=== PATIENT | male | born 1965 | race American Indian/Alaskan Native ===

== ENCOUNTER 2017-11-21 05:23 | Emergency (ER) | payer OTHER ==
[2017-11-21] MEDS ORDERED: TYLENOL PO ONE (05:50)
[2017-11-21] MEDS ORDERED: SUBLIMAZE IV ONE (05:57)
[2017-11-21 06:08] LABS: Basophils # (Auto) 0.1 K/mm3 (0.0-0.1); Basophils % (Auto) 0.9 % (0.0-1.8); Eosinophils # (Auto) 0.7 K/mm3 (0.0-0.4); Eosinophils % (Auto) 8.5 % (0.0-4.3); Hematocrit 42.2 % (35.5-45.6); Hemoglobin 14.4 gm/dl (11.8-15.2); Lymphocytes # (Auto) 2.2 K/mm3 (1.2-5.4); Lymphocytes % (Auto) 28.9 % (13.4-35.0); Mean Corpuscular HGB Conc 34 % (32-34); Mean Corpuscular Hemoglobin 31 pg (28-32); Mean Corpuscular Volume 91 fl (84-94); Monocytes # (Auto) 0.5 K/mm3 (0.0-0.8); Monocytes % (Auto) 6.7 % (0.0-7.3); Platelet Count 139 K/mm3 (140-440); Red Blood Count 4.62 M/mm3 (3.65-5.03); Red Cell Distribution Width 14.8 % (13.2-15.2)
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
[2017-11-21 06:25] LABS: Alanine Aminotransferase 75 units/L (7-56); BUN/Creatinine Ratio 18; Blood Urea Nitrogen 11 mg/dL (9-20); Calcium 8.6 mg/dL (8.4-10.2); Hemolysis Index 2; Lipase 14 units/L (13-60)
[2017-11-21 06:33] LABS: Bilirubin,Urine NEG (Negative); Blood,Urine NEG (Negative); Color,Urine Yellow (Yellow); Mucus,Urine FEW /HPF; Protein,Urine <15 mg/dL mg/dL (Negative); Urobilinogen,Urine < 2.0 mg/dL (<2.0)
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
--- NOTE | 2017-11-21 07:28 | Cat Scan Report ---
FINAL REPORT EXAM: CT LUMBAR SPINE WO CON HISTORY: back pain TECHNIQUE: CT images are acquired through the lumbar spine without contrast. Transaxial , coronal and sagittal reformations are provided. PRIORS: None. FINDINGS: Lumbar lordosis is intact. Prominent superior endplate Schmorl's nodes at L1 and L2. Vertebral body heights and intervertebral disc spaces are otherwise preserved. Diffusely scattered endplate spondylosis. Vacuum disc phenomenon noted at L4-L5. Posterior disc bulging is present at L3-L4 through L5-S1. No listhesis, spondylolysis or other fracture. IMPRESSION: No acute lumbar spine fracture or malalignment. Diffuse sequela of lumbar disc degeneration is most prominent in the lower lumbar spine. At least mild spinal canal and neural foraminal stenosis are likely present but incompletely evaluated on CT. Consider follow-up MRI as warranted.
[2017-11-21] MEDS ORDERED: NARCAN 2 MG/2 ML IV ONE (09:11)
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
[2017-11-21 10:19] VITALS: BP 140/86
[2017-11-21] MEDS ORDERED: NARCAN 2 MG/2 ML ONE (11:15)
== END 2017-11-21 11:44 | disposition home or self-care (01) ==
LOC: EEVIPCON 05:23 → ED 05:23
DX: S01.01XA Laceration without foreign body of scalp, initial encounter (principal); F10.129 Alcohol abuse with intoxication, unspecified; F17.200 Nicotine dependence, unspecified, uncomplicated; V49.49XA Driver injured in collision with other motor vehicles in traffic accident, initial encounter; Y93.89 Activity, other specified; Y92.89 Other specified places as the place of occurrence of the external cause; Y99.8 Other external cause status
CPT/HCPCS: 36415; 70450; 71045; 71250; 72125; 72128; 72131; 72170; 74176; 80053; 81001; 83690; 84484; 85025; 93005; 93010; 96374; 96375; 99284; G0480; J2310; J3010; 80320